=== PATIENT | male | born 1995 | race African-American/Black ===

== ENCOUNTER 2018-05-19 10:57 | Emergency (ER) | payer OTHER ==
[~2018-05-19] VITALS: Ht 177.8 cm; Wt 77.1 kg
[2018-05-19 10:57] VITALS: BP 112/72
[2018-05-19] MEDS ORDERED: NKM (11:00)
--- NOTE | 2018-05-19 11:02 | NUR ---
ED Nurse Note: patient brought in by ambulance from home. patient called ambulance due to swelling feeling in his throat, he also felt his throat hurting. a/o x4, ambulatory. vss
--- NOTE | 2018-05-19 11:27 | Emergency Room Report ---
History of Present Illness General Chief Complaint: Sore Throat Source: Patient Present Illness HPI The patient was inhaling some he ate cocoa butter compound. Is usually he will became swollen. He had difficulty swallowing. He dialed 911 and was transported here. He denies any fevers or chills. There is no respiratory difficulty. There is some mild pain in the uvula at this time. Pain is rated 4 /10. No chest pain, palpitations, nausea, vomiting, diarrhea, dysuria, abdominal pain , shortness of breath, depression, visual changes, headache. When he initially was speaking it sounded like he is said that he had been using cocaine. He denies this. Allergies: Coded Allergies: No Known Allergies (Unverified , 05/19/18) Patient History Past Medical History: see triage record Social History: Denies: smoking Social History Narrative From home Reviewed Nursing Documentation: PMH: Agreed; PSxH: Agreed Nursing Documentation-PM Past Medical History: No Stated History Review of Systems All Other Systems: negative except mentioned in HPI Physical Exam Vital Signs Date Time Temp Pulse Resp B/P (MAP) Pulse Ox O2 Delivery O2 Flow Rate FiO2 05/19/18 10:55 98.1 68 19 112/72 97 Room Air General Appearance: well appearing, no apparent distress Head: normocephalic, atraumatic Eyes: bilateral eye normal inspection, bilateral eye PERRL ENT: hearing grossly normal, no angioedema, normal voice, other - Swollen and edematous uvula Neck: full range of motion, supple Respiratory: no respiratory distress, speaking full sentences Cardiovascular #1: regular rate, rhythm Cardiovascular #2: 2+ radial (R) Gastrointestinal: normal inspection Musculoskeletal: gait/station normal Neurologic: alert, oriented x3, normal gait, grossly normal Psychiatric: mood/affect normal Skin: no rash Medical Decision Making Diagnostic Impression: Primary Impression: Uvulitis ER Course Patient presents with a swollen and edematous uvula. Diagnosis is clinical. Will be treated with viscous lidocaine. Patient is improved with treatment. Patient stable for outpatient observation and treatment. Last Vital Signs Date Time Temp Pulse Resp B/P (MAP) Pulse Ox O2 Delivery O2 Flow Rate FiO2 05/19/18 11:41 98.1 68 19 112/72 97 Room Air Status: improved Disposition: HOME, SELF-CARE Condition: Improved Scripts Lidocaine HCl 2% Viscous (Lidocaine HCl 2% Viscous) 100 Ml Solution 10 ML ORAL QID, #60 ML 1 Refill Prov: Flakito Parmar MD 05/19/18 Flakito Parmar MD May 19, 2018 11:27
[2018-05-19] MEDS ORDERED: LIDOCAINE VISC100 ML ORAL (11:28)
[2018-05-19] MEDS ORDERED: Lidocaine 2% Visc 15ml soln ORAL ONE (11:30)
[2018-05-19 11:41] VITALS: BP 112/72
--- NOTE | 2018-05-19 11:41 | NUR ---
ER DISCHARGE NOTE: Patient is cleared to be discharged per ERMD, pt is aox4, on room air, with stable vital signs. pt was given dc and prescription instructions, pt was able to verbalize understanding, pt id band removed without complications. pt is able to ambulate with steady gait. pt took all belongings.
== END 2018-05-19 11:41 | disposition home or self-care (01) ==
LOC: EDBD 10:57 → EMR 11:30
DX: K12.2 Cellulitis and abscess of mouth (principal)
CPT/HCPCS: 99282